=== PATIENT | female | born 1965 | race Asian ===

== ENCOUNTER 2017-04-10 09:21 | Emergency (ER) | payer SELFPAY, OTHER | END 2017-04-10 11:00 | disposition home or self-care (01) | LOC: FTE 09:21 | DX: R21 Rash and other nonspecific skin eruption (principal) | CPT/HCPCS: 99283 ==

== ENCOUNTER 2017-04-13 10:32 | Emergency (ER) | payer SELFPAY ==
[2017-04-13] MEDS ORDERED: morphine 4 MG/ML VIAL IV (10:43)
[2017-04-13] MEDS ORDERED: ONDANSETRON 4 MG INJ IV (10:43)
[2017-04-13] MEDS ORDERED: SOD CHLORIDE 0.9% 1,000 ML IV (10:43)
[2017-04-13] MEDS: AZITHROMYCIN 250 MG TAB PO (10:56)
== END 2017-04-13 11:18 | disposition home or self-care (01) ==
LOC: E/R 10:32
DX: B01.9 Varicella without complication (principal); J02.0 Streptococcal pharyngitis
CPT/HCPCS: 99284